=== PATIENT | female | born 1940 | race Caucasian/White ===

== ENCOUNTER 2019-10-29 21:53 | Emergency (ER) | payer MEDICARE, SELFPAY ==
[2019-10-29 21:59] VITALS: BP 198/91; PULSE 100; RESP 20; TEMP 36.7; O2SAT 97; BMI 39.1
--- NOTE | 2019-10-29 22:14 | ED_ITS ---
HPI - Fall General: Chief Complaint: Fall Stated Complaint: arm pain Time Seen by Provider: 10/29/19 22:05 History of Present Illness: HPI Narrative: Patient is a 79-year-old female who comes to the ED with right shoulder pain. Patient says right shoulder pain was caused by a fall that occurred within the last couple hours tonight. Patient says she was taking out some dirty dishwater to dump it and she slipped and fell and landed on right shoulder. Patient says her pain is a 10 out of 10 and it is all located in the right shoulder. Patient denies any head trauma or loss of consciousness. She has not taken any pain medication such as Tylenol or ibup rofen before arriving to the ED. Associated symptoms-after fall: Denies abdominal pain, chest pain, headache(s), hematuria or neck pain Review of Systems Const: Denies: fever(s), chills or fatigue Eyes: Denies: change in vision or eye discomfort ENMT: Denies: throat pain, odynophagia, nasal discharge or nasal congestion Card: Denies: chest pain, palpitations, edema, swelling of feet/ankles, dyspnea on exertion or orthopnea Resp: Denies: dyspnea, productive cough or non-productive cough GI: Denies: abdominal pain, nausea, vomiting, diarrhea, constipation or hem atochezia : Denies: flank pain, dysuria or hematuria Musc: Reports: joint pain (right shoulder); Denies: neck pain, back pain or extremity swelling Skin/Breast: Denies: rash or new lesions Neuro: Denies: headache(s), numbness in extremities or weakness in extremities [facility] ED PFSH: Social History Smoking and tobacco status: never smoked Physical Exam Const: COMMON NORMALS: patient oriented x3 and alert GENERAL APPEARANCE: cooperative; not comfortable (pt appears uncomfortable due to shoulder pain.) HENMT: COMMON NORMALS: normocephalic HEAD & SCALP: normocephalic MOUTH: Normal oral and palatal mucosa present THROAT: posterior oropharynx normal and uvula midline Eye: COMMON NORMALS: Equal, round and reactive pupils present PUPIL: Yes Equal, round and reactive pupils present Neck/C-Spine: COMMON NORMALS: supple GENERAL: Yes normal visual inspection Resp: COMMON NORMALS: normal respiratory effort, No retractions, No use of accessory muscles and clear to auscultation bilaterally AUSCULTATION: clear to auscultation bilaterally Cardio: COMMON NORMALS: regular rate, regular rhythm, S1 normal heart sound present, S2 normal heart sound present, No gallops present (Cardio), No clicks present (Cardio), No murmurs present (Cardio) and Peripheral pulses 2+ throughout RATE: regular rate RHYTHM: regular rhythm HEART SOUNDS: S1 normal heart sound present and S2 normal heart sound present PERIPHERAL PULSES: Peripheral pulses 2+ throughout GI: COMMON NORMALS: Normal to inspection, nondistended, normoactive bowel sounds present, Soft to palpation, non-tender and no masses PALPATION: Yes Soft to palpation : COMMON NORMALS: Yes no CVA tenderness BLADDER/KIDNEY EXAM: Yes no CVA tenderness Back/Pelvis: COMMON NORMALS: no CVA tenderness Extremity: COMMON NORMALS: capillary refill normal and no pedal edema NARRATIVE EXTREMITY EXAM: Right extremity?no pain or tenderness in the wrist or forearm or elbow. Patient had normal cap refill, full sensation and strength in the hand. Radial pulse was 2+. RIGHT UPPER EXTREMITY: Yes shoulder joint (Tenderness over proximal head of humerous and posterior aspect of shoulder. no clavicle tenderness) Right shoulder: Yes Right shoulder joint inspection exam (no erythema or warmth. no visible deformity.), Yes palpation, Yes Right shoul leydi joint ROM exam (could not move upper arm due to pain.) and Yes Right shoulder joint neurovascular exam (intact) Neuro: COMMON NORMALS: patient oriented x3 and moves all extremities SENSORIUM/ORIENTATION: Yes alert Skin: COMMON NORMALS: no rashes or lesions noted GENERAL SKIN EXAM: no rashes or lesions noted and dry skin Course Reevaluation(s): Reevaluation #1: Patient's pain before morphine was a 10 out of 10. After morphine was given she was stating pain was below a 4 out of 10. Patient appeared much more comfortable after morphine was given. Consultations: Consultation #1: I contacted [facility] in [facility] to get in touch with their orthopedic neon sign installer provider to discuss patient case. I spoke with [facility] orthopedic physician speech language assistant Braden Martinez. I told Juan about the case and [facility] radiology sent [facility] the radiographic images for them to review. The on-call orthopedic surgeon evaluated the x-rays and suggested that patient gets placed in a shoulder immobilizer and they will see patient at [facility] orthopedic clinic in [facility] on Friday. Juan also told me that the [facility] orthopedic clinic will contact patient on Friday to get more information from patient. They told me that patient will probably see Dr. Rich Ying on Friday. Vital Signs: Vital signs: Vital Signs Temperature 98.1 F 10/29/19 21:59 Pulse Rate 96 10/30/19 03:06 Respiratory Rate 18 10/30/19 03:06 Blood Pressure 141/81 10/30/19 03:06 Pulse Oximetry 96 10/30/19 03:06 MDM - Fall MDM Narrative: Medical decision making narrative: Patient is a 79-year-old female comes to the ED with right shoulder pain after having a fall. Patient appeared in discomfort and pain. tenderness over the humeral proximal humeral head tenderness tenderness over the proximal humeral head and posterior aspect of right shoulder.Yazmin lCap refill, radial pulse 2+ and sensation intact. Right shoulder x-ray was performed and showed an acute comminuted fracture and inferi or subluxation of the proximal right humerus. I contacted the [facility] in [place] to contact orthopedic neon sign installer provider. I spoke with [facility] orthopedic physician speech language assistant Braden Martinez about patient case and he was also able to have access to radiology images. He reviewed them along with the orthopedic surgeon and they recommended putting patient in a shoulder immobilizer and they would see patient at [facility] orthopedic clinic in [place] on Friday. Patient would see Dr. Ying. He told me that he [facility] orthopedic clinic would contact patient on Friday to get more information and details. Patient's pain while here in the ED was controlled with morphine. I discussed with patient the plan of care and how she will be seen by [facility] orthopedic clinic in [place] on Friday. I gave patient all the contact information for [facility] orthopedic clinic including the phone number and address. I told patient to call [facility] on Friday afternoon if she does not hear from the m by Friday. Patient was given a prescription for Carrabelle 7.5/325 mg tabs and 20 tabs were dispensed. Patient was placed in a shoulder immobilizer and discharged. Patient understood and agreed with plan. Imaging Data^: Xray Ortho: Attestation: I personally reviewed and interpreted this imaging study as follows: Radiologist's impression: XRay Report Signed Patient: Kate Byrd Unit #: [id number] : 1940 Age/Sex: 79 / F ADM Date: 0 10/29/19 Loc: ER Room/Bed: Attending Dr: Ordering Provider/Ordering MD: Karlo Pizarro Date of Service: 10/29/19 Procedure(s): XR shoulder RT min 2V* [id number] Accession Number(s): [id number] Report Number: [id number] PROCEDURE INFORMATION: Exam: XR Right Shoulder Exam date and time: 10/29/2019 10:38 PM Age: 79 years old Clinical indication: Injury or trauma; Initial encounter; Blunt trauma (contusions or hematomas; Patient HX: Fall tonight. C/O severe right shoulder pain. ; Additional info: Fall with pain in right shoulder. Tender to palpation TECHNIQUE: Imaging protocol: XR Right shoulder. Views: 2 or more views. COMPARISON: No relevant prior studies available. FINDINGS: Bones/joints: There is a comminuted fracture of the right humeral head. There is an inferior subluxation of the glenohumeral joint as well. Soft tissues: Normal. XR/XR shoulder RT min 2V* [id number] IMPRESSION: Acute comminuted fracture and inferior subluxation of the proximal right humerus. Dictated By: Valdo Jorge MD Signed By: Valdo Jorge MD Signed Date/Time: 10/29/192331 DD/ 30 Discharge Plan Discharge Patient Disposition: Home, Self-Care Clinical Impression: Fracture, humerus closed Qualifiers: Encounter type: initial encounter Humerus Location: proximal Fracture morphology: other fracture Fracture alignment: nondisplaced Laterality: right Qualified Code(s): S42.294A - Other nondisplaced fracture of upper end of right humerus, initial encounter for closed fracture Condition: Stable Prescriptions: No Action Aspirin Low Dose 81 mg Tablet,Delayed Release (Dr/Ec) 81 RF: 0 Discharge Orders: Discharge Order (Routine); Ordered 10/30/19 Ordered By: Karlo Pizarro Referrals: Tori Ritchie DO [Primary Care Provider] - Discharge Diet: Regular Discharge Activity: Limit activity as instructed Patient Instructions: Fractures - Humerus Activity Restrictions/Additional Instructions: Follow-up with [facility] in [facility]. Telephone number is [phone]. Address is [address] [place] [id number]. They should be contacting you on Friday morning to talk about your scheduled appointment on Friday with Dr. Rich Ying. If you do not hear from them on Friday please give them a call. Take Carrabelle as prescribed as needed for pain. Limit use of right arm and keep right arm in shoulder immobilizer until told to remove it by orthopedic doctor.. Discharge Date/Time: 10/30/19 03:10 Coding Level of Care Code ED Guard Driver for Cesia Fwjolynn Exam Comprehensive
--- NOTE | 2019-10-29 22:21 | XRR_ITS ---
PROCEDURE INFORMATION: Exam: XR Right Shoulder Exam date and time: 10/29/2019 10:38 PM Age: 79 years old Clinical indication: Injury or trauma; Initial encounter; Blunt trauma (contusions or hematomas; Patient HX: Fall tonight. C/O severe right shoulder pain. ; Additional info: Fall with pain in right shoulder. Tender to palpation TECHNIQUE: Imaging protocol: XR Right shoulder. Views: 2 or more views. COMPARISON: No relevant prior studies available. FINDINGS: Bones/joints: There is a comminuted fracture of the right humeral head. There is an inferior subluxation of the glenohumeral joint as well. Soft tissues: Normal. XR/XR shoulder RT min 2V* [id number] IMPRESSION: Acute comminuted fracture and inferior subluxation of the proximal right humerus.
[2019-10-29] MEDS: HYDROcodone-acetaminophen 7.5-325 mg Tablet 1 TAB PO (22:28)
[2019-10-29 23:46] VITALS: BP 181/92; PULSE 84; RESP 16; O2SAT 95
[2019-10-30] MEDS: ondansetron 2 mg/ML SDV 2 mL 4 MG IM (00:49)
--- NOTE | 2019-10-30 01:22 | PC.NURSE ---
Radiology is needing to do repeat xray for orthopedist in [place]. Robson JONES helping patient change position from wheelchair to stretcher.
[2019-10-30 02:43] VITALS: RESP 18
[2019-10-30] MEDS: morphine 4 mg/mL SDV 1 mL IVP (02:43)
[2019-10-30 03:06] VITALS: BP 141/81; PULSE 96; RESP 18; O2SAT 96
== END 2019-10-30 03:10 | disposition home or self-care (01) ==
PROVIDERS: Emergency Provider Physician Assistant; PCP Family Medicine
DX: S42.294A Other nondisplaced fracture of upper end of right humerus, initial encounter for closed fracture (principal); Z79.82 Long term (current) use of aspirin; W01.0XXA Fall on same level from slipping, tripping and stumbling without subsequent striking against object, initial encounter
CPT/HCPCS: 12345; 29240; 73030; 96372; 96374; 96375; 99281; 99283; E0114; J2270; J2405

== ENCOUNTER 2019-12-07 16:18 | Outpatient (RCR) | payer MEDICARE, SELFPAY | END 2019-12-14 23:59 | disposition home or self-care (01) | LOC: SPT 16:18 | PROVIDERS: PCP Family Medicine; Visit Provider Orthopaedic Surgery | DX: S42.301D Unspecified fracture of shaft of humerus, right arm, subsequent encounter for fracture with routine healing (principal); X58.XXXD Exposure to other specified factors, subsequent encounter | CPT/HCPCS: 97161 ==

== ENCOUNTER 2019-12-15 06:00 | Outpatient (RCR) | payer MEDICARE, SELFPAY | END 2020-01-14 23:59 | disposition home or self-care (01) | LOC: SPT 06:00 | PROVIDERS: PCP Family Medicine; Visit Provider Orthopaedic Surgery | DX: S42.301D Unspecified fracture of shaft of humerus, right arm, subsequent encounter for fracture with routine healing (principal); X58.XXXD Exposure to other specified factors, subsequent encounter | CPT/HCPCS: 97110; 97140 ==

== ENCOUNTER 2020-01-15 06:00 | Outpatient (RCR) | payer MEDICARE, SELFPAY | END 2020-02-14 23:59 | disposition home or self-care (01) | LOC: SPT 06:00 | PROVIDERS: PCP Family Medicine; Visit Provider Orthopaedic Surgery | DX: Z47.89 Encounter for other orthopedic aftercare (principal); S42.301D Unspecified fracture of shaft of humerus, right arm, subsequent encounter for fracture with routine healing; X58.XXXD Exposure to other specified factors, subsequent encounter | CPT/HCPCS: 97110; 97140 ==

== ENCOUNTER 2020-02-15 06:00 | Outpatient (RCR) | payer MEDICARE, SELFPAY | END 2020-03-15 23:59 | disposition home or self-care (01) | LOC: SPT 06:00 | PROVIDERS: PCP Family Medicine; Visit Provider Orthopaedic Surgery | DX: S42.391D Other fracture of shaft of right humerus, subsequent encounter for fracture with routine healing (principal); X58.XXXD Exposure to other specified factors, subsequent encounter | CPT/HCPCS: 97110 ==

== ENCOUNTER 2020-03-16 06:00 | Outpatient (RCR) | payer MEDICARE, SELFPAY | END 2020-04-15 23:59 | disposition home or self-care (01) | LOC: SPT 06:00 | PROVIDERS: PCP Family Medicine; Visit Provider Orthopaedic Surgery | DX: S42.301D Unspecified fracture of shaft of humerus, right arm, subsequent encounter for fracture with routine healing (principal) | CPT/HCPCS: 97110 ==

== ENCOUNTER 2023-10-31 16:42 | Emergency (ER) | payer MEDICARE, SELFPAY ==
[2023-10-31 17:25] VITALS: BP 127/55; PULSE 89; RESP 16; TEMP 36.6; O2SAT 98; BMI 36.1
--- NOTE | 2023-10-31 17:33 | XRR_ITS ---
PROCEDURE INFORMATION: Exam: XR Right Hip Exam date and time: 10/31/2023 7:21 PM Age: 83 years old Clinical indication: Right hip; Patient HX: RT hip pain; No known trauma TECHNIQUE: Imaging protocol: Radiologic exam of the right hip. Views: 1 view hip with pelvis when performed. COMPARISON: No relevant prior studies available. FINDINGS: Bones/joints: Unremarkable. No acute fracture. Soft tissues: Surgical clips projecting through the right groin.. XR/XR hip RT 2-3V wo/w pel* [id number] IMPRESSION: No acute findings.
--- NOTE | 2023-10-31 18:35 | ED_ITS ---
HPI - Extremity Problem 2 General: Chief complaint: Extremity Problem,Nontraumatic Stated complaint: hip pain Time Seen by Provider: 10/31/23 18:18 Source: patient Mode of arrival: ambulatory Limitations: no limitations History of Present Illness: 83-year-old female states she has been h aving right-sided hip pain for the last 2 weeks its worsened. States that she is not able to ambulate on that hip due to the severe pain its much worse with movement or trying to ambulate rates the pain a 6 out of 10 currently it is improved with rest denies any injuries. Associated symptoms: Deny chest pain, fever(s) or rash Review of Systems 2 Const: Denies: fever(s), chills, body aches or change in appetite ENMT: Denies: throat pain or dental pain Card: Denies: chest pain Resp: Denies: dyspnea GI: Denies: abdominal pain, nausea, vomiting or diarrhea Musc: Reports: extremity pain; Denies: neck pain or back pain Skin/Breast: Denies: rash Neuro: Denies: headache(s) PFSH ED 2 PFSH: Social History Smoking and tobacco/nicotine status: never used tobacco/nicotine Physical Exam 2 Const: COMMON NORMALS: no acute distress, patient oriented x3 and healthy appearing HENMT: COMMON NORMALS: normocephalic and atraumatic HEAD & SCALP: n ormocephalic and atraumatic Eye: COMMON NORMALS: conjunctivae normal CONJUNCTIVA: Yes conjunctivae normal Neck/C-Spine: COMMON NORMALS: full ROM and supple Chest: COMMONS NORMALS: normal inspection of the chest Resp: COMMON NORMALS: normal respiratory effort GI: COMMON NORMALS: Normal to inspection, nondistended, normoactive bowel sounds present, Soft to palpation, non-tender and no masses PALPATION: Yes Soft to palpation Extremity: COMMON NORMALS: normal to inspection NARRATIVE EXTREMITY EXAM: Tenderness to right hip with pain with range of motion. Neuro: COMMON NORMALS: patient oriented x3, moves all extremities and no focal motor deficits Psych: COMMON NORMALS: mental status grossly normal, Normal thought process present and cooperative THOUGHT PROCESS: Normal thought process present Skin: COMMON NORMALS: no rashes or lesions noted and no wounds GENERAL SKIN EXAM: no rashes or lesions noted Course 2 Vital Signs: Vital signs: Vital Signs Temperature 98 F 10/31/23 17:25 Pulse Rate 90 10/31/23 20:01 Respiratory Rate 20 H 10/31/23 19:17 Blood Pressure 155/69 10/31/23 20:01 Pulse Oximetry 95 10/31/23 20:01 Oxygen Delivery Me thod Room Air 10/31/23 20:01 MDM - Extremity (Nontraumatic) Medical Decision Making Patient presents here with hip pain does have an iliac fracture could be pathologic CT did show metastatic disease I did inform patient of this I did speak to our orthopedist Dr. Rosenthal patient's injury is nonsurgical I offered her admission for pain control she states she did rather go home with pain meds in a wheelchair we will get her DME wheelchair inform her she needs a follow-up with her PCP to further workup these masses and will get her oncology follow-up she understands agrees to plan she is return if worsening Medical Records I reviewed the patient's medical records. Lab Data I reviewed the patient's lab results. 10/31/23 19:25 10/31/23 19:25 Radiology Impressions Hip/Pelvis X-Ray 10/31/23 17:33 IMPRESSION: No acute findings. Abdomen/Pelvis CT 10/31/23 19:34 IMPRESSION: 1. There is a nondisplaced fracture through the right iliac bone just superior to the acetabulum with extension of 1 of the fracture planes into the roof of the acetabulum. There is an adjacent 4.9 x 3.6 cm mass just lateral to the iliac fracture (series 11, image 30) measuring 46 Hounsfield units which may represent a hematoma but may also represent a metastatic lesion. There is a similar-appearing mass just medial to the iliac bone measuring up to 4.4 x 2.7 cm (series 11, image 33). 2. There is an 11 mm juxtapleural pulmonary nodule in the left base (series 6, image 7). There is an adjacent 8 mm juxtapleural pulmonary nodule left lung base (series 6, image 2). These are concerning for metastatic disease. 3. There is a partially visualized pericardiac mass measuring at least 4.3 x 3.3 x 3.5 cm. This is concerning for metastatic disease. 4. There is a hypodense 4.9 x 3.3 cm mass in the left adrenal gland and 2 right adrenal masses measuring up to 2.7 x 2.8 cm. These are consistent with metastatic disease. Laboratory Results WBC 17.36 10^3/uL (3.29-11.43) H 10/31/23 19: RBC 3.45 10^6/uL (3.85-5.65) L 10/31/23 19: Hgb 10.00 g/dL (11.27-16.99) L 10/31/23: Hct 30.2 % (36-47) L 10/31/23: MCV 87.5 fl (85-98) 10/31/23: MCH 29.0 pg (27-33) 10/31/23: MCHC 33.1 g/dL (30-55) 10/31/23: RDW 14.4 % (12.1-15.1) 10/31/23: Plt Count 277 10^3/cmm (157-399) 10/31/23: MPV 9.2 fL (7.4-10.4) 10/31/23 19: Neut % (Auto) 80.0 % 10/31/23 19: Lymph % (Auto) 10.9 % 10/31/23: [place] % (Auto) 6.3 % 10/31/23: Eos % (Auto) 1.3 % 10/31/23: Baso % (Auto) 0.5 % 10/31/23: Neut # (Auto) 13.89 10^3/uL (1.8-7.7) H 10/31/23 19: Lymph # (Auto) 1.9 10^3/uL (0.8-4.8) 10/31/23: [place] # (Auto) 1.1 10^3/uL (0.2-0.9) H 10/31/23: Eos # (Auto) 0.2 10^3/uL (0.0-0.8) 10/31/23: Baso # (Auto) 0.1 10^3/uL (0.0-0.1) 10/31/23: Nucleated RBC % (auto) 0 % 05/17/24 19:25 Nucleated RBCs # 0.0 /100WBC 10/31/23 19:25 ESR 48 mm/hr (0-15) H 10/31/23 19:25 Sodium 140 mmol/L (136-145) 10/31/23 19:25 Potassium 2.7 mmol/L (3.5-5.1) L* 10/31/23 19:25 Chloride 99 mmol/L (98-107) 10/31/23 19:25 Carbon Dioxide 27 mmol/L (22-29) 10/31/23 19:25 Anion Gap 16.7 (5-19) 10/31/23 19:25 BUN 27 mg/dL (8-23) H 10/31/23 19:25 Creatinine 0.9 mg/dL (0.5-0.9) 10/31/23 19:25 GFR Calculation Not Reportable 10/31/23 19:25 Glucose 131 mg/dL (65-115) H 10/31/23 19:25 Calculated Osmolality 297 mOsm/kg (285-295) H 10/31/23 19:25 Calcium 9.3 mg/dL (8.5-10.5) 10/31/23 19:25 Magnesium 2.0 mg/dL (1.7-2.3) 10/31/23 19:25 Total Bilirubin 0.5 mg/dL (0.15-1.2) 10/31/23 19:25 AST 9 U/L (0-32) 10/31/23 19:25 ALT 9 U/L (0-33) 10/31/23 19:25 Alkaline Phosphatase 98 U/L (35-105) 10/31/23 19:25 C-Reactive Protein 123.0 mg/L (0.0-4.9) H 10/31/23 19:25 Total Protein 7.3 g/dL (6.6-8.7) 10/31/23 19:25 Albumin 3.4 g/dL (3.5-5.2) L 10/31/23 19:25 Globulin 3.9 g/dL (1.3-4.6) 10/31/23 19:25 All radiology interpretation(s) finalized by discharge Discharge Plan Discharge Patient Disposition: Home Clinical Impression: Fracture of right iliac crest, Metastatic disease, Hypokalemia Condition: Stable Prescriptions: New hydrocodone-acetaminophen 5-325 mg tablet 1 tab PO Q6H PRN (Reason: pain) Qty: 14 0RF potassium chloride 20 mEq packet 40 meq PO BID Qty: 10 0RF No Action Tami Low Dose Aspirin 81 mg Tablet,Delayed Release (Dr/Ec) 81 Discharge Orders: Discharge ED (Routine); Ordered 10/31/23 Ordered By: Luis Gomez Other Ambulatory Orders: DME: Wheelchair (Order) Location: None Selected Ordered By: Luis Gomez Referrals: Tori Ritchie DO [Primary Care Provider] - 4-7 days Discharge Diet: Advance as tolerated Discharge Activity: Resume usual activity Patient Instructions: Pelvic Fracture (ED), Hypokalemia (ED), Opioid Safety Coding Level of Care Code ED Box Stamper for Cesia Claire
[2023-10-31 19:17] VITALS: RESP 20; O2SAT 98
[2023-10-31] MEDS: ondansetron 2 mg/ML SDV 2 mL 4 MG IVP (19:17)
[2023-10-31] MEDS: morphine 4 mg/mL SDV 1 mL IVP (19:17)
[2023-10-31] MEDS: dexamethasone 10 mg/mL INJ IVP (19:17)
[2023-10-31 19:31] LABS: Basophils # 0.1 10^3/uL (0.0-0.1); Basophils % 0.5 %; Eosinophils # 0.2 10^3/uL (0.0-0.8); Eosinophils % 1.3 %; Hematocrit 30.2 % (36-47); Lymphocytes # 1.9 10^3/uL (0.8-4.8); Lymphocytes % 10.9 %; Mean Corpuscular HGB Conc 33.1 g/dL (30-55); Mean Corpuscular Volume 87.5 fl (85-98); Mean Platelet Volume 9.2 fL (7.4-10.4); Monocytes # 1.1 10^3/uL (0.2-0.9); Monocytes % 6.3 %; Neutrophils # 13.89 10^3/uL (1.8-7.7); Nucleated Red Blood Cells % 0 %; Platelet Count 277 10^3/cmm (157-399); Red Blood Count 3.45 10^6/uL (3.85-5.65); Red Cell Distribution Width 14.4 % (12.1-15.1); White Blood Count 17.36 10^3/uL (3.29-11.43)
--- NOTE | 2023-10-31 19:34 | CTR_ITS ---
PROCEDURE INFORMATION: Exam: CT Abdomen And Pelvis With Contrast Exam date and time: 10/31/2023 7:43 PM Age: 83 years old Clinical indication: Pain and abnormal findings; Abnormal lab test; Elevated wbc; Prior surgery; Surgery date: 6+ months; Surgery type: Humeral fixation. Tubal. Patient HX: Wbc of 17k. C/O worsening RT hip pain with no recent injury. ; Additional info: Right hip pain TECHNIQUE: Imaging protocol: Computed tomography of the abdomen and pelvis with contrast. Radiation optimization: All CT scans at this facility use at least one of these dose optimization techniques: automated exposure control; mA and/or kV adjustment per patient size (includes targeted exams where dose is matched to clinical indication); or iterative reconstruction. Contrast material: OMNI 350; Contrast volume: 100 ml; Contrast route: INTRAVENOUS (IV); COMPARISON: CR (PELVIS, ) 10/31/2023 7:21 PM RADIATION DOSE METRICS: Total DLP (mGy-cm): 1816.84 FINDINGS: Lungs: There is an 11 mm juxtapleural pulmonary nodule in the left base (series 6, image 7). There is an adjacent 8 mm juxtapleural pulmonary nodule left lung base (series 6, image 2). These are concerning for metastatic disease. Heart: There is a partially visualized pericardiac mass measuring at least 4.3 x 3.3 x 3.5 cm. Liver: Normal. No mass. Gallbladder and bile ducts: Normal. No calcified stones. No ductal dilation. Pancreas: Normal. No ductal dilation. Spleen: Normal. No splenomegaly. Adrenal glands: There is a hypodense 4.9 x 3.3 cm mass in the left adrenal gland and 2 right adrenal masses measuring up to 2.7 x 2.8 cm. Kidneys and ureters: Normal. No hydronephrosis. Stomach and bowel: Unremarkable. No obstruction. No mucosal thickening. Appendix: No evidence of appendicitis. Intraperitoneal space: Unremarkable. No free air. No significant fluid collection. 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 Lymph nodes: Unremarkable. No enlarged lymph nodes. Urinary bladder: Unremarkable as visualized. Reproductive: Unremarkable as visualized. Bones/joints: Multilevel severe facet arthrosis throughout the lumbar spine. There is a nondisplaced fracture through the right iliac bone just superior to the acetabulum with extension of 1 of the fracture planes into the roof of the acetabulum. There is an adjacent 4.9 x 3.6 cm mass just lateral to the iliac fracture (series 11, image 30) measuring 46 Hounsfield units which may represent a hematoma but may also represent a metastatic lesion. There is a similar-appearing mass just medial to the iliac bone measuring up to 4.4 x 2.7 cm (series 11, image 33). Soft tissues: There is a fat containing umbilical hernia measuring 1.6 cm at the neck. CT/CT abdomen pelvis w con* [id number] IMPRESSION: 1. There is a nondisplaced fracture through the right iliac bone just superior to the acetabulum with extension of 1 of the fracture planes into the roof of the acetabulum. There is an adjacent 4.9 x 3.6 cm mass just lateral to the iliac fracture (series 11, image 30) measuring 46 Hounsfield units which may represent a hematoma but may also represent a metastatic lesion. There is a similar-appearing mass just medial to the iliac bone measuring up to 4.4 x 2.7 cm (series 11, image 33). 2. There is an 11 mm juxtapleural pulmonary nodule in the left base (series 6, image 7). There is an adjacent 8 mm juxtapleural pulmonary nodule left lung base (series 6, image 2). These are concerning for metastatic disease. 3. There is a partially visualized pericardiac mass measuring at least 4.3 x 3.3 x 3.5 cm. This is concerning for metastatic disease. 4. There is a hypodense 4.9 x 3.3 cm mass in the left adrenal gland and 2 right adrenal masses measuring up to 2.7 x 2.8 cm. These are consistent with metastatic disease.
[2023-10-31 19:41] LABS: Erythrocyte Sedimentation Rate 48 mm/hr (0-15)
[2023-10-31] MEDS: iohexol 350 mg/mL 500 mL Btl (per mL) IV (19:43)
[2023-10-31 19:47] LABS: Alanine Aminotransferase 9 U/L (0-33); Albumin Level 3.4 g/dL (3.5-5.2); Alkaline Phosphatase 98 U/L (35-105); Anion Gap 16.7 (5-19); Aspartate Amino Transferase 9 U/L (0-32); Blood Urea Nitrogen 27 mg/dL (8-23); Calcium 9.3 mg/dL (8.5-10.5); Carbon Dioxide 27 mmol/L (22-29); Chloride 99 mmol/L (98-107); Creatinine Clr Calc Pharmacy 61.0406; Globulin 3.9 g/dL (1.3-4.6); Glucose 131 mg/dL (65-115); Osmolality Calculated 297 mOsm/kg (285-295); Sodium 140 mmol/L (136-145); Total Bilirubin 0.5 mg/dL (0.15-1.2); Total Protein 7.3 g/dL (6.6-8.7)
[2023-10-31 19:50] LABS: Potassium 2.7 mmol/L (3.5-5.1)
[2023-10-31] MEDS: potassium chloride ER 20 mEq Tablet 40 MEQ PO (19:59)
[2023-10-31 20:01] VITALS: BP 155/69; PULSE 90; O2SAT 95
[2023-10-31] MEDS: HYDROcodone-acetaminophen 5-325 mg Tablet 1 TAB PO (22:50)
--- NOTE | 2023-10-31 22:51 | PC.NURSE ---
1 tablet of hydrocodone was prescribed per verbal order of Dr Daly, and was witnessed by Alysha JONES.
[2023-10-31 22:53] VITALS: BP 138/90; PULSE 89; O2SAT 91
--- NOTE | 2023-11-02 21:10 | DCPLANNER ---
Message sent to oncology for follow up
== END 2023-10-31 22:25 | disposition home or self-care (01) ==
PROVIDERS: Emergency Provider Emergency Medicine; PCP Family Medicine
DX: S32.301A Unspecified fracture of right ilium, initial encounter for closed fracture (principal); E87.6 Hypokalemia; C79.9 Secondary malignant neoplasm of unspecified site; C80.1 Malignant (primary) neoplasm, unspecified; X58.XXXA Exposure to other specified factors, initial encounter
CPT/HCPCS: 73502; 74177; 80053; 83735; 85025; 85651; 86140; 96374; 96375; 99285; J1100; J2270; J2405; Q9967

== ENCOUNTER 2023-11-17 10:02 | Inpatient (IN) | payer MEDICARE, SELFPAY ==
[2023-11-17] VITALS (13 sets, daily range): BP systolic 103–128; BP diastolic 66–85; PULSE 101–122; RESP 16–25; TEMP 36.8–37.4; O2SAT 93–96; BMI 36.0
--- NOTE | 2023-11-17 10:14 | XRR_ITS ---
PROCEDURE INFORMATION: Exam: XR Chest Exam date and time: 11/17/2023 10:27 AM Age: 83 years old Clinical indication: Pain; Cough and dyspnea; Angina pectoris; Prior surgery; Surgery date: 6+ months; Surgery type: RT humerus; Additional info: Dyspnea/cough TECHNIQUE: Imaging protocol: Radiologic exam of the chest. Views: 1 view. COMPARISON: CT abdomen pelvis w con* [id number] 10/31/2023 7:43 PM FINDINGS: Lungs: See Soft tissues finding. Pleural spaces: Unremarkable. No pleural effusion. No pneumothorax. Heart/Mediastinum: Unremarkable. No cardiomegaly. Bones/joints: A right shoulder prosthesis is well seated and well aligned. Soft tissues: There is a 4.7 cm rounded area of nodular mass effect in the medial aspect of the right lung base. Numerous tiny nodules are also scattered throughout the remainder of the right lung. The left lung is clear. XR/XR chest 1V portable [id number] IMPRESSION: Stable right lung nodules
[2023-11-17] MEDS: HYDROmorphone 1 mg/mL INJ 1 mL 0.5 MG IVP ×2 (10:28→10:43)
[2023-11-17] MEDS: orphenadrine 30 mg/mL Inj 2 mL 60 MG IVP (10:42)
[2023-11-17 11:01] LABS: Hematocrit 27.4 % (36-47); Mean Corpuscular HGB Conc 31.4 g/dL (30-55); Mean Corpuscular Hemoglobin 28.5 pg (27-33); Mean Corpuscular Volume 90.7 fl (85-98); Platelet Count 402 10^3/cmm (157-399); Red Blood Count 3.02 10^6/uL (3.85-5.65); Red Cell Distribution Width 15.1 % (12.1-15.1); White Blood Count 27.52 10^3/uL (3.29-11.43)
--- NOTE | 2023-11-17 11:04 | PC.PHAR ---
VERIFIED ALL CONTROLLED SUBSTANCES WITH [facility].
[2023-11-17 11:06] LABS: Alanine Aminotransferase 12 U/L (0-33); Alkaline Phosphatase 190 U/L (35-105); Anion Gap 18.6 (5-19); Aspartate Amino Transferase 10 U/L (0-32); Blood Urea Nitrogen 45 mg/dL (8-23); Calcium 9.9 mg/dL (8.5-10.5); Carbon Dioxide 25 mmol/L (22-29); Chloride 101 mmol/L (98-107); Globulin 4.5 g/dL (1.3-4.6); Glucose 164 mg/dL (65-115); Osmolality Calculated 305 mOsm/kg (285-295); Potassium 4.6 mmol/L (3.5-5.1); Sodium 140 mmol/L (136-145); Total Bilirubin 0.3 mg/dL (0.15-1.2); Total Protein 7.5 g/dL (6.6-8.7)
[2023-11-17] MEDS: LORazepam 2 mg/mL INJ 10 mL MDV 1 MG IVP ×2 (11:17→20:46)
[2023-11-17 11:34] LABS: Slide Review Slide Review Perform
[2023-11-17 11:35] LABS: Absolute Eosinophils 0.3 10^3/cmm (0.0-0.7); Absolute Neutrophil 21.5 10^3/cmm (1.4-6.5); Absolute Segmented Neutrophil 21.2 10/cmm (1.6-7.1); Band Neutrophils Absolute 0.3 10^3/cmm (0.0-1.2); Eosinophils 1 %; Lymphocytes 8 %; Lymphocytes Absolute 2.5 10^3/cmm (1.2-3.4); Monocytes Absolute 2.8 10^3/cmm (0.1-0.6); Platelet Estimate Increased (Normal); Segmented Neutrophils 77 %; Total Cells Counted 100 (0-100)
--- NOTE | 2023-11-17 13:08 | ED_ITS ---
HPI - General Adult 2 General: Chief complaint: General Medical Stated complaint: pain Time Seen by Provider: 11/17/23 10:11 Source: patient Mode of arrival: EMS History of Present Illness: 83-year-old female presents to the emerg ency room complaining of severe right hip pain. Patient was recently found to have multiple lung masses a right acetabular fracture. 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 Patient has not had a tissue diagnosis. PET scan done recently was reviewed. Patient is having severe pain she is on a fentanyl patch and as needed oxycodone. This has not been adequate for pain control. Family is planning to see oncology and is considering hospice. Onset (ago): week(s) Location: pelvis Severity: severe Quality: sharp Relieving factors: none Exacerbating factors: none Associated symptoms: Deny chest pain, confusion, cough, diaphoresis, decreased appetite, dyspnea, fevers/chills, headache(s), malaise, nausea, rash, palpitations, seizures, short of breath, syncope, vomiting or weakness Review of Systems 2 Const: Denies: fever(s), chills, malaise or diaphoresis Card: Denies: chest pain, palpitations or syncope Resp: Denies: dyspnea GI: Denies: abdominal pain, nausea or vomiting : Denies: dysuria, urinary frequency or urinary urgency Musc: Denies: neck pain or back pain Skin/Breast: Denies: rash Neuro: Denies: headache(s) or confusion PFSH ED 2 PFSH: Social History Smoking and tobacco/nicotine status: never used tobacco/nicotine Physical Exam 2 Const: GENERAL APPEARANCE: cooperative ORIENTATION/CONSCIOUSNESS: Yes awake, Yes oriented to person, Yes oriented to place and Yes oriented to time HENMT: COMMON NORMALS: normocephalic, atraumatic and hearing grossly normal bilaterally HEAD & SCALP: normocephalic and atraumatic Resp: COMMON NORMALS: normal respiratory effort, No retractions, No use of accessory muscles and clear to auscultation bilaterally AUSCULTATION: clear to auscultation bilaterally Cardio: COMMON NORMALS: regular rate, regular rhythm and No murmurs present (Cardio) RATE: regular rate RHYTHM: regular rhythm GI: COMMON NORMALS: Soft to palpation and No hepatosplenomegaly present A USCULTATION: Yes normoactive bowel sounds PALPATION: Yes Soft to palpation, No Tenderness to palpation present (GI), No Guarding due to palpation present (GI) and Yes No hepatosplenomegaly present Extremity: COMMON NORMALS: normal to inspection, capillary refill normal, no clubbing, cyanosis or edema, no calf tenderness and no pedal edema Neuro: SENSORIUM/ORIENTATION: Yes oriented to person, Yes oriented to place and Yes oriented to time Skin: COMMON NORMALS: no rashes or lesions noted GENERAL SKIN EXAM: no rashes or lesions noted Course 2 Vital Signs: Vital signs: Vital Signs Temperature 98.3 F 11/17/23 10:08 Pulse Rate 102 H 11/17/23 10:08 Respiratory Rate 17 11/17/23 10:43 Blood Pressure 114/77 11/17/23 12:50 Pulse Oximetry 94 11/17/23 12:50 Oxygen Delivery Me thod Nasal Cannula 11/17/23 10:08 [facility] - General Adult Medical Decision Making Patient has disseminated cancer. Treatment options are going to be quite limited. They have not yet seen oncology but they do not have a tissue diagnosis but are not interested in pursuing 1 given the information derived from the PET scan. Discussed with Dr. Bunch he discussed with Dr. Varela who is radiation oncology. Will admit to initiate palliative radiation and pain control. Oncology will see the patient. Plan to refer to oncology. Medical Records I reviewed the patient's medical records. Lab Data I reviewed the patient's lab results. 11/17/23 09:50 11/17/23 09:50 Radiology Impressions Chest X-Ray 11/17/23 10:14 IMPRESSION: Stable right lung nodules Laboratory Results WBC 27.52 10^3/uL (3.29-11.43) H 11/17/23 09:50 RBC 3.02 10^6/uL (3.85-5.65) L 11/17/23 09:50 Hgb 8.60 g/dL (11.27-16.99) L 11/17/23 09:50 Hct 27.4 % (36-47) L 11/17/23 09:50 MCV 90.7 fl (85-98) 11/17/23 09:50 MCH 28.5 pg (27-33) 11/17/23 09:50 MCHC 31.4 g/dL (30-55) 11/17/23 09:50 RDW 15.1 % (12.1-15.1) 11/17/23 09:50 Plt Count 402 10^3/cmm (157-399) H 11/17/23 09:50 MPV 9.0 fL (7.4-10.4) 11/17/23 09:50 Lymph % (Auto) Not Reportable 11/17/23 09:50 [place] % (Auto) Not Reportable 11/17/23 09:50 Lymph # (Auto) Not Reportable 11/17/23 09:50 [place] # (Auto) Not Reportable 11/17/23 09:50 Total Counted 100 (0-100) 11/17/23 09:50 Atypical Lymphs % 1.0 % (0-5) 11/17/23 09:50 Absolute Neutrophils 21.5 10^3/cmm (1.4-6.5) H 11/17/23 09:50 Segmented Neutrophils 77 % 11/17/23 09:50 Abs Segm Neuts (Man) 21.2 10/cmm (1.6-7.1) H 11/17/23 09:50 Band Neutrophils 1.0 % 11/17/23 09:50 Abs Band Neuts (Man) 0.3 10^3/cmm (0.0-1.2) 11/17/23 09:50 Absolute Lymphocytes 2.5 10^3/cmm (1.2-3.4) 11/17/23 09:50 Lymphocytes (Manual) 8 % 11/17/23 09:50 Monocytes (Manual) 10.0 % 11/17/23 09:50 Absolute Monocytes 2.8 10^3/cmm (0.1-0.6) H 11/17/23 09:50 Eosinophils (Manual) 1 % 11/17/23 09:50 Absolute Eosinophils 0.3 10^3/cmm (0.0-0.7) 11/17/23 09:50 Basophils (Manual) 0.0 % 11/17/23 09:50 Absolute Basophils 0.0 10^3/cmm (0.0-0.2) 11/17/23 09:50 Metamyelocytes 1.0 % 11/17/23 09:50 Myelocytes 1.0 % 11/17/23 09:50 Platelet Estimate Increased (Normal) H 11/17/23 09:50 Sodium 140 mmol/L (136-145) 11/17/23 09:50 Potassium 4.6 mmol/L (3.5-5.1) 11/17/23 09:50 Chloride 101 mmol/L (98-107) 11/17/23 09:50 Carbon Dioxide 25 mmol/L (22-29) 11/17/23 09:50 Anion Gap 18.6 (5-19) 11/17/23 09:50 BUN 45 mg/dL (8-23) H 11/17/23 09:50 Creatinine 1.0 mg/dL (0.5-0.9) H 11/17/23 09:50 GFR Calculation Not Reportable 11/17/23 09:50 Glucose 164 mg/dL (65-115) H 11/17/23 09:50 Calculated Osmolality 305 mOsm/kg (285-295) H 11/17/23 09:50 Calcium 9.9 mg/dL (8.5-10.5) 11/17/23 09:50 Total Bilirubin 0.3 mg/dL (0.15-1.2) 11/17/23 09:50 AST 10 U/L (0-32) 11/17/23 09:50 ALT 12 U/L (0-33) 11/17/23 09:50 Alkaline Phosphatase 190 U/L (35-105) H 11/17/23 09:50 Total Protein 7.5 g/dL (6.6-8.7) 11/17/23 09:50 Albumin 3.0 g/dL (3.5-5.2) L 11/17/23 09:50 Globulin 4.5 g/dL (1.3-4.6) 11/17/23 09:50 All radiology interpretation(s) finalized by discharge Discharge Plan Discharge Patient Disposition: Admitted As Inpatient Admit Provider: Richy Varela Clinical Impression: Metastatic primary lung cancer, Right acetabular fracture Condition: Stable Coding Level of Care Code ED [employer] for Cesia Claire
--- NOTE | 2023-11-17 13:41 | PC.NURSE ---
notified hospitalist on pt's arrival from ER to room 259-2 family at bedside. pt pain is down to 3-4 per pain scale. Pt's son applied 50 mcg of Fentanyl patch on right shoulder yesterday. pt is awake and follow commands. notified hospitalist for admit orders.
--- NOTE | 2023-11-17 13:50 | P.HP_ITS ---
Providers/Chief Complaint 2 Admitting Physician: Richy Varela MD Primary Care Provider: Tori Ritchie DO Chief Complaint: pain History of Present Illness Kate Byrd is a 83 year old female presenting to the emergency department with complaints of uncontrollable hip pain. She was recently diagnosed with widely metastatic malignancy, with metastasis to her acetabulum on the right. Pain has not been well-controlled with oxycodone and fentanyl. The emergency department physician required multiple doses of IV medication for pain as well as anxiolytics to achieve pain control. I discussed her case with oncology who she was seeing and they recommended palliative radiation, and continued pain control. Patient is not able to answer for herself during my exam having just received quite a bit of pain medications. Son who is her power of meteorological technician is present, and reports he would like consideration of hospice to occur after treatment of her severe pain with radiation. Review of Systems 2 General: Reports: ROS unobtainable due to medical condition and ROS unobtainable due to mental status Medications/Allergies Home Medications Medication Instructions Recorded Confirmed Last Taken Type aspirin 81 mg tablet,delayed 81 mg PO QAM 10/29/19 11/17/23 11/16/23 History release (Tami Low Dose Aspirin) potassium chloride 20 mEq oral 40 meq PO BID #10 ea 10/31/23 11/17/23 11/16/23 Rx packet acetaminophen 650 mg 1,300 mg PO Q12H 11/17/23 11/17/23 11/16/23 History tablet,extended release fentanyl 50 mcg/hr transdermal 1 patch transdermal Q72H 11/17/23 11/17/23 Unknown History patch ferrous sulfate 325 mg (65 mg See Rx Instructions .Route .COMPLEX 11/17/23 11/17/23 11/16/23 History iron) tablet furosemide 20 mg tablet 20 mg PO DAILY 11/17/23 11/17/23 11/16/23 History hydrochlorothiazide 25 mg tablet 25 mg PO DAILY 11/17/23 11/17/23 11/16/23 History ibuprofen 200 mg tablet 800 mg PO Q6H PRN Pain 11/17/23 11/17/23 11/16/23 History lisinopril 40 mg tablet 40 mg PO DAILY 11/17/23 11/17/23 11/16/23 History methocarbamol 750 mg tablet 750 mg PO Q8H 11/17/23 11/17/23 11/16/23 History metoprolol succinate 100 mg 100 mg PO DAILY 11/17/23 11/17/23 11/16/23 History tablet,extended release 24 hr oxycodone 20 mg tablet 20 mg PO Q6H PRN Pain 11/17/23 11/17/23 11/16/23 History simvastatin 40 mg tablet 40 mg PO DAILY 11/17/23 11/17/23 11/16/23 History Allergies Allergy/AdvReac Type Severity Reaction Status Date / Time lovastatin Allergy ALGY-Hives Verified 10/29/19 22:11 Penicillins Allergy ALGY-Hives Verified 10/29/19 22:11 PFSH Acute 2 PFSH: Medical History (Updated 11/17/23 @ 13:55 by Richy Varela MD) Hyperlipidemia Hypertension Metastatic primary lung cancer Social History Smoking and tobacco/nicotine status: never used tobacco/nicotine Vitals/I&O/Wt Last Vital Signs Temp 98.3 F 11/17/23 10:08 Pulse 102 H 11/17/23 10:08 Resp 17 11/17/23 10:43 BP 114/77 11/17/23 12:50 Pulse Ox 94 11/17/23 12:50 O2 Del Method Nasal Cannula 11/17/23 13:45 Weight last 48 hrs Weight 104.326 kg Physical Exam 2 Narrative: General exam is a white female, who can open her eyes on command to appears to be in pain from her right hip. She points to this area when ask but she cannot have a significant conversation regarding this following her pain medication. HEENT: Atraumatic. Oropharynx clear Neck is supple no lymphadenopathy thyromegaly Cardiovascular tachycardic, 3/6 systolic murmur Lungs clear Abdomen is soft. Hernia easily reducible, midline no obvious organomegaly exam is deferred Extremities no sinus clubbing edema, cap refill brisk Skin no rash Neuro no obvious focal deficits Data 11/17/23 09:50 11/17/23 09:50 Other Labs: LFTs are normal exception of alk phos of 190. Albumin is 3.0. Calcium 9.9. Chest x-ray right lung nodule/mass per my review A&P Assessment and plan (1) Metastatic primary lung cancer: Patient with widely metastatic malignancy likely lung cancer Family and patient have indicated that they want to be considered for hospice but have uncontrolled pain. She has been admitted for initiation of radiation oncology consultation for possible radiotherapy of where she has greatest degree of pain, her right acetabulum Continue fentanyl patch, oxycodone Muscle relaxant scheduled Ativan as needed Dilaudid IV for breakthrough pain Consider further adjustment as needed Hospice consultation PET scan was performed on November 11 which demonstrated extensive pulmonary mets, bilateral adrenal mets, multiple osseous tumors, muscular involvement in the right hemipelvis, right buttocks tumor implant, right hemothorax likely primary tumor, head and neck hypermetabolic lesions as well as retropharyngeal metastasis (2) Right acetabular fracture: Secondary to metastatic malignancy (3) Hypertension: Hold blood pressure medications. Blood pressure will likely be significantly decreased on pain medication regimen. Plan Leukocytosis. No infection identified as of this time Anemia. Likely secondary to underlying malignancy Allow natural SCDs only for DVT prophylaxis. Family is wanting comfort measures following radiation treatments. Subcutaneous injections are not comfortable. Attestations 2 Medical Necessity Statement*: At this point will likely need greater than 2 midnight stay for evaluation and treatment of uncontrollable pain requiring initiation of radiotherapy for pain control and acceleration of medication. Diagnoses Metastatic primary lung cancer C34.90 Right acetabular fracture S32.401A Hypertension I10 Time Spent (min) 65
[2023-11-17] MEDS: HYDROmorphone 1 mg/mL INJ 1 mL IVP (14:29)
[2023-11-17] MEDS: methocarbamol 750 mg Tablet PO ×2 (15:31→20:46)
[2023-11-17 15:47] LABS: Add Urine Microscopic? NO; Charge for UA Resulting for Rev
[2023-11-17 15:52] LABS: Bilirubin Urine Neg (Negative); Blood Urine Neg (Negative); Glucose Urine UA Norm (Normal); Ketones Urine Negative (Negative); Leukocyte Esterase Urine Negative (Negative); Nitrate Urine Negative (Negative); Protein Urine Neg (Negative); Specific Gravity, Urine 1.015 (1.005-1.030); Urine Appearance Clear (CLEAR); Urine Color Yellow (Yellow); Urobilinogen Urine Neg (Negative); pH Urine 5 (5-7)
--- NOTE | 2023-11-17 18:39 | PC.NURSE ---
pt denies any pain or discomfort upon rounding. family at bedside. Informed pt to let us know if any pain or discomfort comes up to better control her pain. informed pt of ativan, iv dilaudid and oral oxycodone for pain control. pt verbalizes understanding.
[2023-11-17] MEDS: morphine 10 mg/0.5 mL oral liq UD PO (19:31)
[2023-11-18] VITALS (8 sets, daily range): BP systolic 112–141; BP diastolic 67–77; PULSE 103–110; RESP 16–22; TEMP 37–38.3; O2SAT 93–96
[2023-11-18] MEDS: HYDROmorphone 1 mg/mL INJ 1 mL IVP ×3 (01:50→14:24)
[2023-11-18] MEDS: LORazepam 2 mg/mL INJ 10 mL MDV 1 MG IVP ×4 (01:50→18:05)
[2023-11-18] MEDS: methocarbamol 750 mg Tablet PO (05:38)
[2023-11-18] MEDS: morphine 10 mg/0.5 mL oral liq UD PO ×3 (09:07→17:44)
--- NOTE | 2023-11-18 12:40 | PM.DCS ---
Discharge Providers Date of Admission: 11/17/23 11:46 Date of Discharge: November 18, 2023 Attending Provider at Admission: Richy Varela MD Attending Provider at Discharge: Richy Varela MD Primary Care Provider: Tori Ritchie DO Diagnoses at Discharge Discharge Diagnosis (1) Metastatic primary lung cancer: Status: Acute (2) Right acetabular fracture: Status: Acute (3) Hypertension: Status: Acute Reason for Visit Reason for Visit: pain Hospital Course Hospital Course Patient was recently diagnosed with widespread metastasis from likely primary lung malignancy with acetabular fracture. She had uncontrolled pain at home so was placed in the hospital. Pain management continued here with muscle relaxants, Tylenol, fentanyl patch, Dilaudid IV, morphine concentrate, oxycodone as needed. She was able to achieve relief of discomfort when still, and a radiation treatment to her acetabular area was performed on November 17. She was found to have significant leukocytosis, and fever. Although no pneumonia or UTI was found I was concerned somewhat that an intra-abdominal cause was present. I visited with the patient and her son regarding this and they decided that given the circumstances of her widespread malignancy they want treated for comfort only. She will go home today following her radiation treatment, for hospice. Hospice will be initiated tomorrow but comfort care will be initiated on discharge today. She would very much like to be at home so medication and education regarding medication of morphine, Ativan, Zofran was given. They were given opportunity ask questions and agreed with the plan. Physical Exam Narrative: General exam no distress Cardiovascular regular rate and rhythm, borderline tachycardic Lungs clear Abdomen some tenderness. Hernia present. Extremities no cyanosis clubbing Urinary Catheter Management: Kingsley Latex Free: Cath Placed During This Visit: yes Reason for Continuing Indwelling Catheter: Hospice/Comfort/Palliative Care Urinary Catheter Date of Insertion: 11/17/23 Urinary Catheter Time of Insertion: 14:00 Discharge Data Studies Completed and Pending Completed Studies During Hospitalization Category Date Time Status XR chest 1V portable [id number] Stat Exams 11/17/23 10:14 Completed Radiology Impressions Chest X-Ray 11/17/23 10:14 IMPRESSION: Stable right lung nodules Laboratory Results WBC 27.52 10^3/uL (3.29-11.43) H 11/17/23 09:50 RBC 3.02 10^6/uL (3.85-5.65) L 11/17/23 09:50 Hgb 8.60 g/dL (11.27-16.99) L 11/17/23 09:50 Hct 27.4 % (36-47) L 11/17/23 09:50 MCV 90.7 fl (85-98) 11/17/23 09:50 MCH 28.5 pg (27-33) 11/17/23 09:50 MCHC 31.4 g/dL (30-55) 11/17/23 09:50 RDW 15.1 % (12.1-15.1) 11/17/23 09:50 Plt Count 402 10^3/cmm (157-399) H 11/17/23 09:50 MPV 9.0 fL (7.4-10.4) 11/17/23 09:50 Lymph % (Auto) Not Reportable 11/17/23 09:50 [place] % (Auto) Not Reportable 11/17/23 09:50 Lymph # (Auto) Not Reportable 11/17/23 09:50 [place] # (Auto) Not Reportable 11/17/23 09:50 Total Counted 100 (0-100) 11/17/23 09:50 Atypical Lymphs % 1.0 % (0-5) 11/17/23 09:50 Absolute Neutrophils 21.5 10^3/cmm (1.4-6.5) H 11/17/23 09:50 Segmented Neutrophils 77 % 11/17/23 09:50 Abs Segm Neuts (Man) 21.2 10/cmm (1.6-7.1) H 11/17/23 09:50 Band Neutrophils 1.0 % 11/17/23 09:50 Abs Band Neuts (Man) 0.3 10^3/cmm (0.0-1.2) 11/17/23 09:50 Absolute Lymphocytes 2.5 10^3/cmm (1.2-3.4) 11/17/23 09:50 Lymphocytes (Manual) 8 % 11/17/23 09:50 Monocytes (Manual) 10.0 % 11/17/23 09:50 Absolute Monocytes 2.8 10^3/cmm (0.1-0.6) H 11/17/23 09:50 Eosinophils (Manual) 1 % 11/17/23 09:50 Absolute Eosinophils 0.3 10^3/cmm (0.0-0.7) 11/17/23 09:50 Basophils (Manual) 0.0 % 11/17/23 09:50 Absolute Basophils 0.0 10^3/cmm (0.0-0.2) 11/17/23 09:50 Metamyelocytes 1.0 % 11/17/23 09:50 Myelocytes 1.0 % 11/17/23 09:50 Platelet Estimate Increased (Normal) H 11/17/23 09:50 Sodium 140 mmol/L (136-145) 11/17/23 09:50 Potassium 4.6 mmol/L (3.5-5.1) 11/17/23 09:50 Chloride 101 mmol/L (98-107) 11/17/23 09:50 Carbon Dioxide 25 mmol/L (22-29) 11/17/23 09:50 Anion Gap 18.6 (5-19) 11/17/23 09:50 BUN 45 mg/dL (8-23) H 11/17/23 09:50 Creatinine 1.0 mg/dL (0.5-0.9) H 11/17/23 09:50 GFR Calculation Not Reportable 11/17/23 09:50 Glucose 164 mg/dL (65-115) H 11/17/23 09:50 Calculated Osmolality 305 mOsm/kg (285-295) H 11/17/23 09:50 Calcium 9.9 mg/dL (8.5-10.5) 11/17/23 09:50 Total Bilirubin 0.3 mg/dL (0.15-1.2) 11/17/23 09:50 AST 10 U/L (0-32) 11/17/23 09:50 ALT 12 U/L (0-33) 11/17/23 09:50 Alkaline Phosphatase 190 U/L (35-105) H 11/17/23 09:50 Total Protein 7.5 g/dL (6.6-8.7) 11/17/23 09:50 Albumin 3.0 g/dL (3.5-5.2) L 11/17/23 09:50 Globulin 4.5 g/dL (1.3-4.6) 11/17/23 09:50 Urine Color Yellow (Yellow) 11/17/23 15:33 Urine Appearance Clear (CLEAR) 11/17/23 15:33 Urine pH 5 (5-7) 11/17/23 15:33 Ur Specific [place] 1.015 (1.005-1.030) 11/17/23 15:33 Urine Protein Neg (Negative) 11/17/23 15:33 Urine Glucose (UA) Norm (Normal) 11/17/23 15:33 Urine Ketones Negative (Negative) 11/17/23 15:33 Urine Blood Neg (Negative) 11/17/23 15:33 Urine Nitrate Negative (Negative) 11/17/23 15:33 Urine Bilirubin Neg (Negative) 11/17/23 15:33 Urine Urobilinogen Neg mg/dL (Negative) 11/17/23 15:33 Ur Leukocyte Esterase Negative (Negative) 11/17/23 15:33 Vitals Last Vital Signs Temp 100.3 F H 11/18/23 11:48 Pulse 103 H 11/18/23 12:06 Resp 22 H 11/18/23 11:48 BP 141/74 11/18/23 11:48 Pulse Ox 93 11/18/23 12:06 O2 Del Method Nasal Cannula 11/18/23 12:06 O2 Flow Rate 3 11/18/23 12:06 Discharge Plan Discharge Patient Disposition: Hospice - Home Condition: Stable Prescriptions: New morphine concentrate 100 mg/5 mL (20 mg/mL) solution 10 mg buccal Q2H PRN (Reason: pain) Qty: 30 0RF Ativan 2 mg/mL solution 1 mg sublingual Q6H PRN (Reason: anxiety) Qty: 30 0RF docusate sodium [Colace] 100 mg capsule 100 mg PO BID Qty: 30 0RF ondansetron 4 mg tablet,disintegrating 4 mg PO Q4H Qty: 10 0RF Rx Instructions: give 1st dose 30min before emetogenic chemo Continued fentanyl 50 mcg/hr Patch 72 Hour 1 patch TRANSDERMAL Q72H Tylenol Arthritis 650 mg Tablet Extended Release 1,300 mg PO Q12H methocarbamol 750 mg Tablet 750 mg PO Q8H oxycodone 20 mg Tablet 20 mg PO Q6H PRN (Reason: Pain) Discontinued aspirin [Tami Low Dose Aspirin] 81 mg Tablet,Delayed Release (Dr/Ec) 81 mg PO QAM potassium chloride 20 mEq packet 40 meq PO BID Qty: 10 0RF metoprolol succinate 100 mg tablet extended release 24 hr 100 mg PO DAILY simvastatin 40 mg tablet 40 mg PO DAILY ferrous sulfate 325 mg (65 mg iron) Tablet See Rx Instructions .ROUTE .COMPLEX Rx Instructions: TAKE 1 TABLET IN THE MORNING AND 2 TABLETS IN THE EVENING. ibuprofen 200 mg Tablet 800 mg PO Q6H PRN (Reason: Pain) hydrochlorothiazide 25 mg tablet 25 mg PO DAILY furosemide 20 mg tablet 20 mg PO DAILY lisinopril 40 mg tablet 40 mg PO DAILY Discharge Orders: Discharge Order (Routine); Ordered 11/18/23 Ordered By: Richy Varela Discharge Diet: Regular Activity Restrictions/Additional Instructions: Follow-up with hospice provider Medications as directed. May discharge home following radiation treatment. Discharge Attestations Time Spent in Discharge Care*: greater than 30 min Quality Metrics Clinical Quality Measures [ No reported AMI, CVA or VTE this stay] Coding Level of Care Code 65890 Total time (in minutes) for Discharge: 36 Diagnoses Metastatic primary lung cancer C34.90 Right acetabular fracture S32.401A Hypertension I10
== END 2023-11-18 18:15 | disposition hospice, home (50) | DRG 543 ==
LOC: ER 11:13 → MEDSURG 11:47
PROVIDERS: Admitting Provider Internal Medicine; Emergency Provider Family Medicine; PCP Family Medicine; Visit Provider Internal Medicine
DX: C79.51 Secondary malignant neoplasm of bone (principal); C34.90 Malignant neoplasm of unspecified part of unspecified bronchus or lung; C79.70 Secondary malignant neoplasm of unspecified adrenal gland; M84.559A Pathological fracture in neoplastic disease, hip, unspecified, initial encounter for fracture; D63.0 Anemia in neoplastic disease; E78.5 Hyperlipidemia, unspecified; I10 Essential (primary) hypertension; Z51.5 Encounter for palliative care
CPT/HCPCS: 51702; 71045; 80053; 81003; 85007; 85025; 96374; 96375; 99285; J1170; J2060; J2360